=== PATIENT | male | born 1990 | race Hispanic/Latino ===

== ENCOUNTER 2018-06-29 00:02 | Emergency (ER) | payer SELFPAY ==
[~2018-06-29] VITALS: Ht 170.2 cm; Wt 95.3 kg
[2018-06-29] MEDS ORDERED: EYE IRRIGATION (OPTH) 120 ML BTL OP ONE (00:15)
[2018-06-29] MEDS ORDERED: TETRACAINE HCL 0.5% OPTH SOLN 4 ML BTL OP ONE (00:15)
[2018-06-29] MEDS ORDERED: TETANUS/DIPHTHERIA TOX ADULT 0.5 ML SYR IM ONE (01:15)
[2018-06-29] MEDS ORDERED: TOBRAMYCIN 0.3% OPTH OINT 3.5 GM TUBE OP ONE (02:00)
== END 2018-06-29 02:26 | disposition home or self-care (01) ==
LOC: ER 00:02
DX: H57.11 Ocular pain, right eye (principal); T15.01XA Foreign body in cornea, right eye, initial encounter
CPT/HCPCS: 90471; 90714; 96372; 99282